=== PATIENT | male | born 1980 | race Caucasian/White ===

== ENCOUNTER 2023-04-12 15:27 | Inpatient (IN) ==
[2023-04-12] MEDS ORDERED: IOPAMIDOL 100 ML BOTTLE IV ONE (15:28)
[2023-04-12] MEDS ORDERED: ONDANSETRON 4 MG/2 ML VIAL IV PRN ×2 (15:42→23:14)
[2023-04-12] MEDS ORDERED: 0.9 % SODIUM CHLORIDE 1,000 ML IV ONE (15:42)
[2023-04-12] MEDS: HYDROmorphone 1 MG/ML SYRINGE IV PRN ×2 (16:03→17:11)
[2023-04-12 16:06] LABS: POC Calcium, Ionized 1.12 (1.16-1.32); POC Creatinine 1.1 (0.6-1.2)
[2023-04-12 16:53] LABS: Basophils # (Auto) 0.04 K/mcL (0.00-0.30); Basophils % (Auto) 0.3 % (0.0-2.0); Eosinophils % (Auto) 0.8 % (0.0-7.0); Lymphocytes # (Auto) 0.97 K/mcL (1.50-4.80); Lymphocytes % (Auto) 7.5 % (15.5-49.0); Mean Corpuscular HGB Conc 34.1 g/dL (31.0-36.0); Monocytes # (Auto) 1.04 K/mcL (0.10-0.90); Neutrophils % (Auto) 83.1 % (38.0-78.0); Platelet Count 333 K/mcL (140-440); RBC 4.89 M/mcL (4.63-6.08); Red Cell Distribution Width 12.8 % (11.5-14.5); WBC 12.9 K/mcL (4.5-11.0)
[2023-04-12 17:09] LABS: ALT/SGPT 20 U/L (<40); AST/SGOT 34 U/L (<40); Albumin 4.4 gm/dL (3.2-5.2); Alkaline Phosphatase 67 U/L (39-117); Bilirubin,Direct < 0.2 mg/dL (0-0.3); Bilirubin,Total 0.3 mg/dL (0.1-1.0); Globulin 3.7 gm/dL (2.2-3.7)
[2023-04-12] MEDS ORDERED: PIPERACILLIN SODIUM/TAZOBACTAM 3.375 GM in DEXTROSE 5% IN WATER 50 ML IV ONE (18:20)
[2023-04-12] MEDS ORDERED: HYDROmorphone 1 MG/ML SYRINGE IV ONE (18:32)
[2023-04-12] MEDS ORDERED: 0.9 % SODIUM CHLORIDE 250 ML IV SCH (19:00)
[2023-04-12] MEDS ORDERED: PROPOFOL 200 MG/20 ML VIAL IV ONE (19:33)
[2023-04-12] MEDS ORDERED: LIDOCAINE 2% PF 5 ML VIAL ONE (19:34)
[2023-04-12] MEDS ORDERED: fentaNYL 100 MCG/2 ML VIAL IV ONE ×2 (19:34→23:41)
[2023-04-12] MEDS ORDERED: ROCURONIUM 10 MG/ML ML IV ONE ×2 (19:34→21:32)
[2023-04-12] MEDS ORDERED: ONDANSETRON 4 MG/2 ML VIAL ONE (21:33)
[2023-04-12] MEDS ORDERED: HYDROmorphone 1 MG/ML SYRINGE ONE (22:50)
[2023-04-12] MEDS ORDERED: DEXMEDETOMIDINE HCL 200 MCG/2 ML VIAL ONE (22:53)
[2023-04-12] MEDS ORDERED: 0.9 % SODIUM CHLORIDE 100 ML IV ONE (22:54)
[2023-04-12] MEDS ORDERED: NALOXONE HCL 0.4 MG/ML VIAL IV PRN (23:14)
[2023-04-12] MEDS ORDERED: MEPERIDINE 50 MG/ML VIAL IM PRN (23:14)
[2023-04-12] MEDS ORDERED: IPRATROPIUM/ALBUTEROL 3 ML AMPUL.NEB NEB PRN (23:14)
[2023-04-12] MEDS ORDERED: fentaNYL 100 MCG/2 ML VIAL IV PRN (23:14)
[2023-04-12] MEDS ORDERED: ACETAMINOPHEN 1,000 MG/100 ML BAG IV ONE (23:14)
[2023-04-12] MEDS ORDERED: PROMETHAZINE 25 MG/ML VIAL IM PRN (23:14)
[2023-04-12] MEDS ORDERED: HYDROmorphone 0.5 MG/0.5 ML SYRINGE IV PRN (23:14)
[2023-04-12] MEDS ORDERED: METHOCARBAMOL 1,000 MG/10 ML VIAL IV PRN (23:14)
[2023-04-12] MEDS ORDERED: BACITRACIN TOPICAL OINT 15 GM TUBE TOPICAL ONE (23:37)
[2023-04-12] MEDS ORDERED: GUM MASTIC/STORAX/MSAL/ALCOHOL 1 DOSE DROPERETTE TOPICAL ONE (23:48)
[2023-04-13] MEDS ORDERED: PROPOFOL 200 MG/20 ML VIAL IV ONE
[2023-04-13] MEDS ORDERED: ACETAMINOPHEN 1,000 MG/100 ML BAG IV ONE (00:15)
[2023-04-13] MEDS ORDERED: PROMETHAZINE 25 MG/ML VIAL ONE (00:17)
[2023-04-13] MEDS ORDERED: MEPERIDINE 50 MG/ML VIAL ONE (00:17)
[2023-04-13] MEDS ORDERED: KETAMINE 50 MG/ML ML IV ONE (00:19)
[2023-04-13] MEDS ORDERED: KETAMINE 50 MG/ML ML ONE (00:31)
[2023-04-13] MEDS ORDERED: LORazepam 2 MG/ML VIAL ONE ×3 (02:03→05:55)
[2023-04-13] MEDS ORDERED: HYDROmorphone 1 MG/ML SYRINGE ONE ×4 (02:03→05:55)
[2023-04-13] MEDS: HYDROmorphone 0.5 MG/0.5 ML SYRINGE IV PRN ×13 (02:07→23:39)
[2023-04-13] MEDS: LORazepam 2 MG/ML VIAL IV PRN ×6 (02:07→14:10)
[2023-04-13] MEDS: DEXTROSE 5%-LR 1,000 ML IV SCH ×5 (02:08→23:46)
[2023-04-13] MEDS: PIPERACILLIN SODIUM/TAZOBACTAM 3.375 GM in DEXTROSE 5% IN WATER 50 ML IV SCH ×4 (02:58→19:58)
[2023-04-13 07:31] LABS: Hematocrit 44.3 % (40.1-51.0); Hemoglobin 14.4 g/dL (13.7-17.5); Mean Cell Volume 93.9 fL (80.0-100.0); Mean Corpuscular HGB Conc 32.5 g/dL (31.0-36.0); Platelet Count 319 K/mcL (140-440); RBC 4.72 M/mcL (4.63-6.08); Red Cell Distribution Width 12.9 % (11.5-14.5); WBC 13.6 K/mcL (4.5-11.0)
[2023-04-13 07:55] LABS: Blood Urea Nitrogen 15 mg/dL (6-20); Calcium 8.1 mg/dL (8.6-10.4); Carbon Dioxide 19 mmol/L (22-30); Chloride 102 mmol/L (96-108); Glomerular Filtration Rate 103; Glucose 101 mg/dL (70-105)
[2023-04-13] MEDS ORDERED: HALOPERIDOL LACTATE 5 MG/ML VIAL IM ONE (17:26)
[2023-04-13 18:53] LABS: Alcohol, Blood < 10.0 mg/dL; Alcohol,Blood < 0.010 gm/dL (<0.010)
[2023-04-13] MEDS ORDERED: DEXMEDETOMIDINE 100 ML IV ONE (22:29)
[2023-04-13] MEDS ORDERED: HALOPERIDOL LACTATE 5 MG/ML VIAL IM PRN (22:32)
[2023-04-13] MEDS: DEXMEDETOMIDINE 400 MCG in PREMIX 1 BAG IV SCH (23:15)
[2023-04-14] MEDS: HALOPERIDOL LACTATE 5 MG/ML VIAL IV PRN ×3 (00:05→08:36)
[2023-04-14] MEDS: PIPERACILLIN SODIUM/TAZOBACTAM 3.375 GM in DEXTROSE 5% IN WATER 50 ML IV SCH ×4 (00:13→18:04)
[2023-04-14] MEDS ORDERED: DEXMEDETOMIDINE 100 ML IV ONE ×2 (02:05→05:02)
[2023-04-14] MEDS: DEXMEDETOMIDINE 400 MCG in PREMIX 1 BAG IV SCH ×3 (02:12→18:05)
[2023-04-14 05:37] LABS: Hematocrit 36.2 % (40.1-51.0); Hemoglobin 12.2 g/dL (13.7-17.5); Mean Cell Volume 92.6 fL (80.0-100.0); Mean Corpuscular HGB Conc 33.7 g/dL (31.0-36.0); Mean Platelet Volume 9.1 fL (8.8-12.5); Platelet Count 268 K/mcL (140-440); RBC 3.91 M/mcL (4.63-6.08); Red Cell Distribution Width 12.6 % (11.5-14.5); WBC 7.1 K/mcL (4.5-11.0)
[2023-04-14 06:05] LABS: Amphetamine Screen,Urine None detected; Barbiturate Screen,Urine None detected; Benzodiazepines Screen,Urine None detected; Cannabinoid Screen,Urine Suspect Positive; Cocaine Screen,Urine None detected; Opiate Screen,Urine None detected; Oxycodone, Urine Screen None detected; Phencyclidine Screen,Urine None detected
[2023-04-14 06:09] LABS: Blood Urea Nitrogen 9 mg/dL (6-20); Carbon Dioxide 24 mmol/L (22-30); Chloride 102 mmol/L (96-108); Glomerular Filtration Rate 108; Glucose 139 mg/dL (70-105)
[2023-04-14] MEDS: HYDROmorphone 0.5 MG/0.5 ML SYRINGE IV PRN ×7 (08:42→22:06)
[2023-04-14] MEDS: DEXTROSE 5%-LR 1,000 ML IV SCH ×2 (08:46→17:15)
[2023-04-14] MEDS: PANTOPRAZOLE 40 MG VIAL IV SCH (09:41)
[2023-04-14] MEDS: NICOTINE 21 MG PATCH TOPICAL SCH (11:23)
[2023-04-14] MEDS: NICOTINE 14 MG PATCH TOPICAL SCH (11:23)
[2023-04-14] MEDS: POTASSIUM CHLORIDE 20 MEQ TABLET PO SCH (17:15)
[2023-04-14] MEDS: LORazepam 2 MG/ML VIAL IV PRN ×2 (18:36→22:53)
[2023-04-14] MEDS ORDERED: KETOROLAC 15 MG/ML VIAL ONE (20:49)
[2023-04-14] MEDS: 0.9 % SODIUM CHLORIDE 10 ML SYRINGE IV SCH (20:52)
[2023-04-14] MEDS: KETOROLAC 15 MG/ML VIAL IV SCH (20:52)
[2023-04-14] MEDS ORDERED: KETOROLAC 15 MG/ML VIAL IV SCH (22:00)
[2023-04-14] MEDS ORDERED: KETOROLAC 30 MG/ML VIAL IV SCH (22:00)
[2023-04-15] MEDS: PIPERACILLIN SODIUM/TAZOBACTAM 3.375 GM in DEXTROSE 5% IN WATER 50 ML IV SCH ×4 (00:30→17:56)
[2023-04-15] MEDS: HYDROmorphone 0.5 MG/0.5 ML SYRINGE IV PRN ×2 (01:43→05:15)
[2023-04-15] MEDS: DEXTROSE 5%-LR 1,000 ML IV SCH ×3 (01:45→18:04)
[2023-04-15] MEDS: HALOPERIDOL LACTATE 5 MG/ML VIAL IV PRN (01:48)
[2023-04-15] MEDS: LORazepam 2 MG/ML VIAL IV PRN ×2 (05:15→20:24)
[2023-04-15] MEDS ORDERED: KETOROLAC 15 MG/ML VIAL ONE (05:16)
[2023-04-15] MEDS: 0.9 % SODIUM CHLORIDE 10 ML SYRINGE IV SCH ×3 (05:16→22:41)
[2023-04-15] MEDS: KETOROLAC 15 MG/ML VIAL IV SCH ×3 (05:17→21:40)
[2023-04-15 06:25] LABS: Hematocrit 40.2 % (40.1-51.0); Hemoglobin 12.9 g/dL (13.7-17.5); Mean Cell Volume 93.7 fL (80.0-100.0); Mean Corpuscular HGB Conc 32.1 g/dL (31.0-36.0); Mean Platelet Volume 8.7 fL (8.8-12.5); Platelet Count 260 K/mcL (140-440); RBC 4.29 M/mcL (4.63-6.08); Red Cell Distribution Width 12.6 % (11.5-14.5); WBC 5.6 K/mcL (4.5-11.0)
[2023-04-15 07:16] LABS: Blood Urea Nitrogen 4 mg/dL (6-20); Calcium 8.4 mg/dL (8.6-10.4); Carbon Dioxide 24 mmol/L (22-30); Chloride 105 mmol/L (96-108); Glomerular Filtration Rate 108; Glucose 104 mg/dL (70-105)
[2023-04-15] MEDS: POTASSIUM CHLORIDE 20 MEQ TABLET PO SCH (07:24)
[2023-04-15] MEDS: PANTOPRAZOLE 40 MG VIAL IV SCH (07:24)
[2023-04-15] MEDS: HYDROmorphone 1 MG/ML SYRINGE IV PRN ×8 (07:24→22:40)
[2023-04-15] MEDS: NICOTINE 21 MG PATCH TOPICAL SCH (09:45)
[2023-04-15] MEDS: NICOTINE 14 MG PATCH TOPICAL SCH (09:46)
[2023-04-15] MEDS: oxyCODONE IR 5 MG TABLET PO PRN ×3 (11:24→23:27)
[2023-04-16] MEDS: PIPERACILLIN SODIUM/TAZOBACTAM 3.375 GM in DEXTROSE 5% IN WATER 50 ML IV SCH ×5 (00:25→23:23)
[2023-04-16] MEDS: DEXTROSE 5%-LR 1,000 ML IV SCH ×6 (02:33→23:25)
[2023-04-16] MEDS: HYDROmorphone 1 MG/ML SYRINGE IV PRN ×7 (03:40→22:00)
[2023-04-16] MEDS: oxyCODONE IR 5 MG TABLET PO PRN ×5 (05:30→22:38)
[2023-04-16] MEDS: KETOROLAC 15 MG/ML VIAL IV SCH ×3 (05:33→22:39)
[2023-04-16] MEDS: 0.9 % SODIUM CHLORIDE 10 ML SYRINGE IV SCH ×3 (05:35→21:29)
[2023-04-16] MEDS: PANTOPRAZOLE 40 MG VIAL IV SCH (07:59)
[2023-04-16] MEDS: LACTULOSE 20 GM/30 ML ORAL.SOL PO SCH (09:58)
[2023-04-16] MEDS: NICOTINE 21 MG PATCH TOPICAL SCH (10:01)
[2023-04-16] MEDS: NICOTINE 14 MG PATCH TOPICAL SCH (10:01)
[2023-04-17] MEDS: HYDROmorphone 1 MG/ML SYRINGE IV PRN ×12 (00:29→22:18)
[2023-04-17] MEDS: oxyCODONE IR 5 MG TABLET PO PRN ×6 (02:30→23:42)
[2023-04-17] MEDS: 0.9 % SODIUM CHLORIDE 10 ML SYRINGE IV SCH ×3 (04:04→22:23)
[2023-04-17] MEDS: DEXTROSE 5%-LR 1,000 ML IV SCH ×3 (04:04→13:47)
[2023-04-17] MEDS: LORazepam 2 MG/ML VIAL IV PRN ×3 (04:33→15:14)
[2023-04-17] MEDS: PIPERACILLIN SODIUM/TAZOBACTAM 3.375 GM in DEXTROSE 5% IN WATER 50 ML IV SCH ×4 (05:55→23:59)
[2023-04-17] MEDS: KETOROLAC 15 MG/ML VIAL IV SCH ×2 (06:27→13:42)
[2023-04-17 07:24] LABS: Hematocrit 41.5 % (40.1-51.0); Hemoglobin 13.5 g/dL (13.7-17.5); Mean Cell Volume 92.4 fL (80.0-100.0); Mean Corpuscular HGB Conc 32.5 g/dL (31.0-36.0); Mean Platelet Volume 8.7 fL (8.8-12.5); Platelet Count 385 K/mcL (140-440); RBC 4.49 M/mcL (4.63-6.08); Red Cell Distribution Width 12.4 % (11.5-14.5); WBC 5.4 K/mcL (4.5-11.0)
[2023-04-17] MEDS: PANTOPRAZOLE 40 MG VIAL IV SCH (07:27)
[2023-04-17 07:48] LABS: Blood Urea Nitrogen 2 mg/dL (6-20); Carbon Dioxide 28 mmol/L (22-30); Chloride 100 mmol/L (96-108); Glomerular Filtration Rate 103; Glucose 94 mg/dL (70-105)
[2023-04-17] MEDS: NICOTINE 14 MG PATCH TOPICAL SCH (09:14)
[2023-04-17] MEDS: NICOTINE 21 MG PATCH TOPICAL SCH (09:14)
[2023-04-17] MEDS: LACTULOSE 20 GM/30 ML ORAL.SOL PO SCH (09:14)
[2023-04-17] MEDS: ACETAMINOPHEN 1,000 MG/100 ML BAG IV SCH ×2 (14:05→22:20)
[2023-04-17] MEDS: ONDANSETRON 4 MG/2 ML VIAL IV PRN ×2 (20:04→23:43)
[2023-04-18] MEDS: DEXTROSE 5%-LR 1,000 ML IV SCH ×3 (00:04→19:51)
[2023-04-18] MEDS: HYDROmorphone 1 MG/ML SYRINGE IV PRN ×11 (00:05→23:04)
[2023-04-18] MEDS: oxyCODONE IR 5 MG TABLET PO PRN ×4 (03:59→20:17)
[2023-04-18] MEDS: ONDANSETRON 4 MG/2 ML VIAL IV PRN ×2 (04:00→11:05)
[2023-04-18] MEDS: ACETAMINOPHEN 1,000 MG/100 ML BAG IV SCH ×3 (05:11→23:06)
[2023-04-18] MEDS: PIPERACILLIN SODIUM/TAZOBACTAM 3.375 GM in DEXTROSE 5% IN WATER 50 ML IV SCH ×3 (05:46→17:45)
[2023-04-18] MEDS: 0.9 % SODIUM CHLORIDE 10 ML SYRINGE IV SCH ×3 (05:59→23:06)
[2023-04-18 06:57] LABS: Hematocrit 40.8 % (40.1-51.0); Hemoglobin 13.6 g/dL (13.7-17.5); Mean Cell Volume 91.3 fL (80.0-100.0); Mean Corpuscular HGB Conc 33.3 g/dL (31.0-36.0); Mean Platelet Volume 8.4 fL (8.8-12.5); Platelet Count 394 K/mcL (140-440); RBC 4.47 M/mcL (4.63-6.08); Red Cell Distribution Width 12.2 % (11.5-14.5); WBC 6.2 K/mcL (4.5-11.0)
[2023-04-18] MEDS: PANTOPRAZOLE 40 MG VIAL IV SCH (07:26)
[2023-04-18 07:32] LABS: Blood Urea Nitrogen 3 mg/dL (6-20); Calcium 9.3 mg/dL (8.6-10.4); Carbon Dioxide 29 mmol/L (22-30); Chloride 96 mmol/L (96-108); Glomerular Filtration Rate 91; Glucose 100 mg/dL (70-105)
[2023-04-18] MEDS: NICOTINE 14 MG PATCH TOPICAL SCH (09:11)
[2023-04-18] MEDS: LACTULOSE 20 GM/30 ML ORAL.SOL PO SCH (09:11)
[2023-04-18] MEDS: NICOTINE 21 MG PATCH TOPICAL SCH (09:11)
[2023-04-18] MEDS ORDERED: IOPAMIDOL 100 ML BOTTLE IV ONE (11:34)
[2023-04-18] MEDS: SULFAMETHOXAZOLE/TRIMETHOPRIM 1 TABLET PO SCH (23:03)
[2023-04-19] MEDS: oxyCODONE IR 5 MG TABLET PO PRN ×5 (00:29→20:46)
[2023-04-19] MEDS: PIPERACILLIN SODIUM/TAZOBACTAM 3.375 GM in DEXTROSE 5% IN WATER 50 ML IV SCH ×5 (00:33→23:30)
[2023-04-19] MEDS: 0.9 % SODIUM CHLORIDE 10 ML SYRINGE IV SCH ×4 (00:33→20:24)
[2023-04-19] MEDS: HYDROmorphone 1 MG/ML SYRINGE IV PRN ×7 (04:54→23:33)
[2023-04-19] MEDS: ACETAMINOPHEN 1,000 MG/100 ML BAG IV SCH ×2 (05:42→14:35)
[2023-04-19 06:29] LABS: Hematocrit 43.8 % (40.1-51.0); Hemoglobin 14.4 g/dL (13.7-17.5); Mean Cell Volume 91.6 fL (80.0-100.0); Mean Corpuscular HGB Conc 32.9 g/dL (31.0-36.0); Mean Platelet Volume 8.5 fL (8.8-12.5); Platelet Count 442 K/mcL (140-440); RBC 4.78 M/mcL (4.63-6.08); Red Cell Distribution Width 12.2 % (11.5-14.5); WBC 5.2 K/mcL (4.5-11.0)
[2023-04-19] MEDS: PANTOPRAZOLE 40 MG VIAL IV SCH (06:58)
[2023-04-19] MEDS: DEXTROSE 5%-LR 1,000 ML IV SCH ×2 (06:58→19:06)
[2023-04-19 07:01] LABS: Blood Urea Nitrogen 5 mg/dL (6-20); Calcium 9.2 mg/dL (8.6-10.4); Carbon Dioxide 28 mmol/L (22-30); Chloride 99 mmol/L (96-108); Glomerular Filtration Rate 91; Glucose 84 mg/dL (70-105)
[2023-04-19] MEDS: LACTULOSE 20 GM/30 ML ORAL.SOL PO SCH (10:41)
[2023-04-19] MEDS: SULFAMETHOXAZOLE/TRIMETHOPRIM 1 TABLET PO SCH ×2 (10:41→20:46)
[2023-04-19] MEDS: NICOTINE 21 MG PATCH TOPICAL SCH (10:49)
[2023-04-19] MEDS: NICOTINE 14 MG PATCH TOPICAL SCH (10:49)
[2023-04-20] MEDS: oxyCODONE IR 5 MG TABLET PO PRN ×6 (01:26→22:32)
[2023-04-20] MEDS: HYDROmorphone 1 MG/ML SYRINGE IV PRN ×7 (03:56→21:50)
[2023-04-20] MEDS: 0.9 % SODIUM CHLORIDE 10 ML SYRINGE IV SCH ×3 (04:16→21:36)
[2023-04-20] MEDS: PIPERACILLIN SODIUM/TAZOBACTAM 3.375 GM in DEXTROSE 5% IN WATER 50 ML IV SCH ×4 (06:03→23:42)
[2023-04-20] MEDS: DEXTROSE 5%-LR 1,000 ML IV SCH ×4 (06:07→22:58)
[2023-04-20] MEDS: PANTOPRAZOLE 40 MG VIAL IV SCH (08:23)
[2023-04-20] MEDS: SULFAMETHOXAZOLE/TRIMETHOPRIM 1 TABLET PO SCH ×2 (10:12→20:40)
[2023-04-20] MEDS: LACTULOSE 20 GM/30 ML ORAL.SOL PO SCH (10:13)
[2023-04-20] MEDS: NICOTINE 21 MG PATCH TOPICAL SCH (13:51)
[2023-04-20] MEDS: NICOTINE 14 MG PATCH TOPICAL SCH (13:51)
[2023-04-20] MEDS: LORazepam 2 MG/ML VIAL IV PRN ×2 (16:12→22:32)
[2023-04-21] MEDS: HYDROmorphone 1 MG/ML SYRINGE IV PRN ×15 (00:20→23:54)
[2023-04-21] MEDS: oxyCODONE IR 5 MG TABLET PO PRN ×5 (02:40→20:30)
[2023-04-21] MEDS: ONDANSETRON 4 MG/2 ML VIAL IV PRN ×2 (02:44→20:38)
[2023-04-21] MEDS: 0.9 % SODIUM CHLORIDE 10 ML SYRINGE IV SCH ×4 (05:18→20:10)
[2023-04-21] MEDS: PIPERACILLIN SODIUM/TAZOBACTAM 3.375 GM in DEXTROSE 5% IN WATER 50 ML IV SCH ×4 (06:01→23:54)
[2023-04-21] MEDS: PANTOPRAZOLE 40 MG VIAL IV SCH (07:06)
[2023-04-21 07:27] LABS: Hematocrit 43.4 % (40.1-51.0); Hemoglobin 13.8 g/dL (13.7-17.5); Mean Cell Volume 93.3 fL (80.0-100.0); Mean Corpuscular HGB Conc 31.8 g/dL (31.0-36.0); Mean Platelet Volume 8.5 fL (8.8-12.5); Platelet Count 466 K/mcL (140-440); RBC 4.65 M/mcL (4.63-6.08); Red Cell Distribution Width 12.2 % (11.5-14.5); WBC 6.5 K/mcL (4.5-11.0)
[2023-04-21 08:36] LABS: Blood Urea Nitrogen 7 mg/dL (6-20); Calcium 9.4 mg/dL (8.6-10.4); Carbon Dioxide 27 mmol/L (22-30); Chloride 101 mmol/L (96-108); Glomerular Filtration Rate 91; Glucose 88 mg/dL (70-105)
[2023-04-21] MEDS: LACTULOSE 20 GM/30 ML ORAL.SOL PO SCH (09:21)
[2023-04-21] MEDS: NICOTINE 14 MG PATCH TOPICAL SCH (09:21)
[2023-04-21] MEDS: SULFAMETHOXAZOLE/TRIMETHOPRIM 1 TABLET PO SCH ×2 (09:21→20:31)
[2023-04-21] MEDS: NICOTINE 21 MG PATCH TOPICAL SCH (09:21)
[2023-04-21] MEDS: DEXTROSE 5%-LR 1,000 ML IV SCH (16:00)
[2023-04-22] MEDS: oxyCODONE IR 5 MG TABLET PO PRN ×6 (00:35→20:33)
[2023-04-22] MEDS: HYDROmorphone 1 MG/ML SYRINGE IV PRN ×12 (01:30→23:22)
[2023-04-22] MEDS: 0.9 % SODIUM CHLORIDE 10 ML SYRINGE IV SCH ×3 (05:03→21:13)
[2023-04-22] MEDS: DEXTROSE 5%-LR 1,000 ML IV SCH ×2 (05:03→20:33)
[2023-04-22] MEDS: PIPERACILLIN SODIUM/TAZOBACTAM 3.375 GM in DEXTROSE 5% IN WATER 50 ML IV SCH ×4 (05:03→23:22)
[2023-04-22] MEDS: PANTOPRAZOLE 40 MG VIAL IV SCH (07:19)
[2023-04-22] MEDS: LACTULOSE 20 GM/30 ML ORAL.SOL PO SCH (08:27)
[2023-04-22] MEDS: SULFAMETHOXAZOLE/TRIMETHOPRIM 1 TABLET PO SCH ×2 (08:27→20:33)
[2023-04-22] MEDS: NICOTINE 21 MG PATCH TOPICAL SCH (09:07)
[2023-04-22] MEDS: NICOTINE 14 MG PATCH TOPICAL SCH (09:07)
[2023-04-22] MEDS: LORazepam 2 MG/ML VIAL IV PRN (23:22)
[2023-04-23] MEDS: oxyCODONE IR 5 MG TABLET PO PRN ×6 (00:45→21:23)
[2023-04-23] MEDS: HYDROmorphone 1 MG/ML SYRINGE IV PRN ×8 (01:10→23:41)
[2023-04-23] MEDS: PIPERACILLIN SODIUM/TAZOBACTAM 3.375 GM in DEXTROSE 5% IN WATER 50 ML IV SCH ×4 (05:53→23:41)
[2023-04-23] MEDS: 0.9 % SODIUM CHLORIDE 10 ML SYRINGE IV SCH ×3 (06:28→21:23)
[2023-04-23] MEDS: DEXTROSE 5%-LR 1,000 ML IV SCH ×2 (06:46→15:49)
[2023-04-23] MEDS: PANTOPRAZOLE 40 MG VIAL IV SCH (07:15)
[2023-04-23] MEDS: LACTULOSE 20 GM/30 ML ORAL.SOL PO SCH (09:12)
[2023-04-23] MEDS: NICOTINE 21 MG PATCH TOPICAL SCH (09:12)
[2023-04-23] MEDS: NICOTINE 14 MG PATCH TOPICAL SCH (09:12)
[2023-04-23] MEDS: SULFAMETHOXAZOLE/TRIMETHOPRIM 1 TABLET PO SCH ×2 (09:12→21:23)
[2023-04-23] MEDS: LORazepam 2 MG/ML VIAL IV PRN (21:31)
[2023-04-24] MEDS: oxyCODONE IR 5 MG TABLET PO PRN ×4 (01:34→22:14)
[2023-04-24] MEDS: DEXTROSE 5%-LR 1,000 ML IV SCH ×3 (02:20→14:48)
[2023-04-24] MEDS: HYDROmorphone 1 MG/ML SYRINGE IV PRN ×6 (03:29→23:43)
[2023-04-24] MEDS: 0.9 % SODIUM CHLORIDE 10 ML SYRINGE IV SCH ×3 (04:04→20:28)
[2023-04-24] MEDS: PIPERACILLIN SODIUM/TAZOBACTAM 3.375 GM in DEXTROSE 5% IN WATER 50 ML IV SCH ×4 (05:37→23:10)
[2023-04-24] MEDS: PANTOPRAZOLE 40 MG VIAL IV SCH (07:45)
[2023-04-24] MEDS: LACTULOSE 20 GM/30 ML ORAL.SOL PO SCH (08:59)
[2023-04-24] MEDS: NICOTINE 21 MG PATCH TOPICAL SCH (08:59)
[2023-04-24] MEDS: NICOTINE 14 MG PATCH TOPICAL SCH (08:59)
[2023-04-24] MEDS: SULFAMETHOXAZOLE/TRIMETHOPRIM 1 TABLET PO SCH ×2 (08:59→20:44)
[2023-04-24] MEDS: LORazepam 2 MG/ML VIAL IV PRN ×2 (14:48→20:44)
[2023-04-25] MEDS: oxyCODONE IR 5 MG TABLET PO PRN ×6 (02:01→22:26)
[2023-04-25] MEDS: LORazepam 2 MG/ML VIAL IV PRN ×3 (03:07→22:26)
[2023-04-25] MEDS: HYDROmorphone 1 MG/ML SYRINGE IV PRN ×5 (04:05→20:26)
[2023-04-25] MEDS: 0.9 % SODIUM CHLORIDE 10 ML SYRINGE IV SCH ×3 (04:14→20:27)
[2023-04-25] MEDS: DEXTROSE 5%-LR 1,000 ML IV SCH ×4 (04:14→22:37)
[2023-04-25] MEDS: PIPERACILLIN SODIUM/TAZOBACTAM 3.375 GM in DEXTROSE 5% IN WATER 50 ML IV SCH ×3 (05:01→18:03)
[2023-04-25] MEDS: PANTOPRAZOLE 40 MG VIAL IV SCH (07:50)
[2023-04-25] MEDS: LACTULOSE 20 GM/30 ML ORAL.SOL PO SCH (08:32)
[2023-04-25] MEDS: SULFAMETHOXAZOLE/TRIMETHOPRIM 1 TABLET PO SCH ×2 (08:32→20:27)
[2023-04-25] MEDS: NICOTINE 21 MG PATCH TOPICAL SCH (10:07)
[2023-04-25] MEDS: NICOTINE 14 MG PATCH TOPICAL SCH (10:07)
[2023-04-26] MEDS: PIPERACILLIN SODIUM/TAZOBACTAM 3.375 GM in DEXTROSE 5% IN WATER 50 ML IV SCH ×3 (00:43→12:13)
[2023-04-26] MEDS: HYDROmorphone 1 MG/ML SYRINGE IV PRN ×4 (00:43→14:22)
[2023-04-26] MEDS: oxyCODONE IR 5 MG TABLET PO PRN ×4 (03:04→20:15)
[2023-04-26] MEDS: LORazepam 2 MG/ML VIAL IV PRN ×3 (03:42→22:55)
[2023-04-26] MEDS: 0.9 % SODIUM CHLORIDE 10 ML SYRINGE IV SCH ×4 (03:44→20:53)
[2023-04-26] MEDS: PANTOPRAZOLE 40 MG VIAL IV SCH (07:43)
[2023-04-26] MEDS: LACTULOSE 20 GM/30 ML ORAL.SOL PO SCH (09:50)
[2023-04-26] MEDS: SULFAMETHOXAZOLE/TRIMETHOPRIM 1 TABLET PO SCH ×2 (09:51→20:15)
[2023-04-26] MEDS: NICOTINE 14 MG PATCH TOPICAL SCH (12:14)
[2023-04-26] MEDS: NICOTINE 21 MG PATCH TOPICAL SCH (12:14)
[2023-04-26] MEDS: DEXTROSE 5%-LR 1,000 ML IV SCH (12:18)
[2023-04-27] MEDS: oxyCODONE IR 5 MG TABLET PO PRN ×5 (00:08→20:11)
[2023-04-27] MEDS: LORazepam 2 MG/ML VIAL IV PRN ×5 (03:08→22:51)
[2023-04-27] MEDS: 0.9 % SODIUM CHLORIDE 10 ML SYRINGE IV SCH ×3 (06:04→22:51)
[2023-04-27] MEDS: PANTOPRAZOLE 40 MG VIAL IV SCH (07:35)
[2023-04-27] MEDS: SULFAMETHOXAZOLE/TRIMETHOPRIM 1 TABLET PO SCH ×2 (09:41→20:11)
[2023-04-27] MEDS: LACTULOSE 20 GM/30 ML ORAL.SOL PO SCH (09:43)
[2023-04-27] MEDS: NICOTINE 21 MG PATCH TOPICAL SCH (09:43)
[2023-04-27] MEDS: NICOTINE 14 MG PATCH TOPICAL SCH (09:44)
[2023-04-27] MEDS: HYDROmorphone 1 MG/ML SYRINGE IV PRN (11:37)
[2023-04-28] MEDS: oxyCODONE IR 5 MG TABLET PO PRN ×6 (00:13→19:59)
[2023-04-28] MEDS: 0.9 % SODIUM CHLORIDE 10 ML SYRINGE IV SCH ×3 (05:11→21:06)
[2023-04-28] MEDS: LACTULOSE 20 GM/30 ML ORAL.SOL PO SCH (08:16)
[2023-04-28] MEDS: PANTOPRAZOLE 40 MG VIAL IV SCH (08:16)
[2023-04-28] MEDS: SULFAMETHOXAZOLE/TRIMETHOPRIM 1 TABLET PO SCH ×2 (08:17→21:05)
[2023-04-28] MEDS: NICOTINE 21 MG PATCH TOPICAL SCH (10:32)
[2023-04-28] MEDS: NICOTINE 14 MG PATCH TOPICAL SCH (10:32)
[2023-04-28] MEDS: LORazepam 2 MG/ML VIAL IV PRN ×4 (10:43→22:03)
[2023-04-29] MEDS: oxyCODONE IR 5 MG TABLET PO PRN ×6 (00:17→20:09)
[2023-04-29] MEDS: LORazepam 2 MG/ML VIAL IV PRN ×6 (02:14→22:18)
[2023-04-29] MEDS: 0.9 % SODIUM CHLORIDE 10 ML SYRINGE IV SCH ×3 (06:10→20:10)
[2023-04-29] MEDS: PANTOPRAZOLE 40 MG VIAL IV SCH (07:35)
[2023-04-29] MEDS: LACTULOSE 20 GM/30 ML ORAL.SOL PO SCH (08:20)
[2023-04-29] MEDS: SULFAMETHOXAZOLE/TRIMETHOPRIM 1 TABLET PO SCH ×2 (08:20→20:09)
[2023-04-29] MEDS: NICOTINE 21 MG PATCH TOPICAL SCH (09:59)
[2023-04-29] MEDS: NICOTINE 14 MG PATCH TOPICAL SCH (09:59)
[2023-04-29] MEDS: HYDROmorphone 1 MG/ML SYRINGE IV PRN (14:38)
[2023-04-30] MEDS: oxyCODONE IR 5 MG TABLET PO PRN ×6 (00:05→22:47)
[2023-04-30] MEDS: LORazepam 2 MG/ML VIAL IV PRN ×5 (02:31→21:01)
[2023-04-30] MEDS: PANTOPRAZOLE 40 MG VIAL IV SCH (06:43)
[2023-04-30] MEDS: 0.9 % SODIUM CHLORIDE 10 ML SYRINGE IV SCH ×5 (06:44→21:02)
[2023-04-30 07:30] LABS: Hematocrit 43.2 % (40.1-51.0); Hemoglobin 14.2 g/dL (13.7-17.5); Mean Cell Volume 90.8 fL (80.0-100.0); Mean Corpuscular HGB Conc 32.9 g/dL (31.0-36.0); Mean Platelet Volume 8.6 fL (8.8-12.5); Platelet Count 633 K/mcL (140-440); RBC 4.76 M/mcL (4.63-6.08); Red Cell Distribution Width 12.1 % (11.5-14.5); WBC 5.8 K/mcL (4.5-11.0)
[2023-04-30 07:59] LABS: Blood Urea Nitrogen 13 mg/dL (6-20); Calcium 9.2 mg/dL (8.6-10.4); Carbon Dioxide 26 mmol/L (22-30); Chloride 96 mmol/L (96-108); Glomerular Filtration Rate 91; Glucose 87 mg/dL (70-105)
[2023-04-30] MEDS: SULFAMETHOXAZOLE/TRIMETHOPRIM 1 TABLET PO SCH ×2 (09:04→21:01)
[2023-04-30] MEDS: LACTULOSE 20 GM/30 ML ORAL.SOL PO SCH (09:04)
[2023-04-30] MEDS: NICOTINE 21 MG PATCH TOPICAL SCH (09:05)
[2023-04-30] MEDS: NICOTINE 14 MG PATCH TOPICAL SCH (09:05)
[2023-05-01] MEDS: LORazepam 2 MG/ML VIAL IV PRN ×4 (02:05→13:47)
[2023-05-01] MEDS: oxyCODONE IR 5 MG TABLET PO PRN ×5 (03:08→20:43)
[2023-05-01] MEDS: 0.9 % SODIUM CHLORIDE 10 ML SYRINGE IV SCH ×5 (05:17→21:27)
[2023-05-01] MEDS: PANTOPRAZOLE 40 MG VIAL IV SCH (07:16)
[2023-05-01] MEDS: SULFAMETHOXAZOLE/TRIMETHOPRIM 1 TABLET PO SCH ×2 (09:22→20:43)
[2023-05-01] MEDS: LACTULOSE 20 GM/30 ML ORAL.SOL PO SCH (09:22)
[2023-05-01] MEDS: NICOTINE 14 MG PATCH TOPICAL SCH (09:23)
[2023-05-01] MEDS: NICOTINE 21 MG PATCH TOPICAL SCH (09:23)
[2023-05-01] MEDS ORDERED: HALOPERIDOL 5 MG TABLET PO PRN (14:59)
[2023-05-01] MEDS: LORazepam 0.5 MG TABLET PO PRN ×2 (19:11→22:47)
[2023-05-02] MEDS: oxyCODONE IR 5 MG TABLET PO PRN ×5 (01:33→19:54)
[2023-05-02] MEDS: 0.9 % SODIUM CHLORIDE 10 ML SYRINGE IV SCH ×4 (05:19→22:10)
[2023-05-02] MEDS: SULFAMETHOXAZOLE/TRIMETHOPRIM 1 TABLET PO SCH ×2 (08:00→19:54)
[2023-05-02] MEDS: PANTOPRAZOLE 40 MG VIAL IV SCH (08:00)
[2023-05-02] MEDS: LACTULOSE 20 GM/30 ML ORAL.SOL PO SCH (08:01)
[2023-05-02] MEDS: LORazepam 0.5 MG TABLET PO PRN (08:01)
[2023-05-02] MEDS: NICOTINE 21 MG PATCH TOPICAL SCH (10:40)
[2023-05-02] MEDS: NICOTINE 14 MG PATCH TOPICAL SCH (10:40)
[2023-05-02] MEDS: HYDROmorphone 1 MG/ML SYRINGE IV PRN (12:05)
[2023-05-03] MEDS: oxyCODONE IR 5 MG TABLET PO PRN ×6 (00:15→20:15)
[2023-05-03] MEDS: 0.9 % SODIUM CHLORIDE 10 ML SYRINGE IV SCH ×4 (04:17→20:16)
[2023-05-03] MEDS: PANTOPRAZOLE 40 MG TABLET PO SCH (07:18)
[2023-05-03] MEDS: LACTULOSE 20 GM/30 ML ORAL.SOL PO SCH (08:48)
[2023-05-03] MEDS: SULFAMETHOXAZOLE/TRIMETHOPRIM 1 TABLET PO SCH ×2 (08:48→20:16)
[2023-05-03] MEDS: NICOTINE 14 MG PATCH TOPICAL SCH (09:40)
[2023-05-03] MEDS: NICOTINE 21 MG PATCH TOPICAL SCH (09:40)
[2023-05-04] MEDS: oxyCODONE IR 5 MG TABLET PO PRN ×5 (00:31→20:51)
[2023-05-04] MEDS: LORazepam 0.5 MG TABLET PO PRN (02:10)
[2023-05-04] MEDS: 0.9 % SODIUM CHLORIDE 10 ML SYRINGE IV SCH ×3 (04:33→20:51)
[2023-05-04] MEDS: LACTULOSE 20 GM/30 ML ORAL.SOL PO SCH ×3 (08:23→20:49)
[2023-05-04] MEDS: SULFAMETHOXAZOLE/TRIMETHOPRIM 1 TABLET PO SCH ×2 (08:23→20:49)
[2023-05-04] MEDS: PANTOPRAZOLE 40 MG TABLET PO SCH (08:24)
[2023-05-04] MEDS: NICOTINE 21 MG PATCH TOPICAL SCH (11:46)
[2023-05-04] MEDS: NICOTINE 14 MG PATCH TOPICAL SCH (11:46)
[2023-05-04] MEDS: HYDROmorphone 1 MG/ML SYRINGE IV PRN (12:02)
[2023-05-05] MEDS: oxyCODONE IR 5 MG TABLET PO PRN ×6 (01:10→21:29)
[2023-05-05] MEDS: 0.9 % SODIUM CHLORIDE 10 ML SYRINGE IV SCH ×3 (05:58→21:30)
[2023-05-05] MEDS: SULFAMETHOXAZOLE/TRIMETHOPRIM 1 TABLET PO SCH ×2 (08:25→21:30)
[2023-05-05] MEDS: PANTOPRAZOLE 40 MG TABLET PO SCH (08:26)
[2023-05-05] MEDS: NICOTINE 21 MG PATCH TOPICAL SCH (08:26)
[2023-05-05] MEDS: LACTULOSE 20 GM/30 ML ORAL.SOL PO SCH ×2 (08:26→21:40)
[2023-05-05] MEDS: NICOTINE 14 MG PATCH TOPICAL SCH (08:26)
[2023-05-06] MEDS: oxyCODONE IR 5 MG TABLET PO PRN ×5 (02:00→20:27)
[2023-05-06] MEDS: 0.9 % SODIUM CHLORIDE 10 ML SYRINGE IV SCH ×2 (05:50→14:45)
[2023-05-06] MEDS: PANTOPRAZOLE 40 MG TABLET PO SCH (10:30)
[2023-05-06] MEDS: SULFAMETHOXAZOLE/TRIMETHOPRIM 1 TABLET PO SCH ×2 (10:30→20:27)
[2023-05-06] MEDS: NICOTINE 14 MG PATCH TOPICAL SCH (10:31)
[2023-05-06] MEDS: NICOTINE 21 MG PATCH TOPICAL SCH (10:31)
[2023-05-06] MEDS: LACTULOSE 20 GM/30 ML ORAL.SOL PO SCH ×2 (10:35→20:25)
[2023-05-06] MEDS: HYDROmorphone 1 MG/ML SYRINGE IV PRN (14:14)
[2023-05-07] MEDS: 0.9 % SODIUM CHLORIDE 10 ML SYRINGE IV SCH ×5 (00:24→20:58)
[2023-05-07] MEDS: oxyCODONE IR 5 MG TABLET PO PRN ×5 (00:24→19:35)
[2023-05-07] MEDS: PANTOPRAZOLE 40 MG TABLET PO SCH (06:53)
[2023-05-07] MEDS: LACTULOSE 20 GM/30 ML ORAL.SOL PO SCH (09:30)
[2023-05-07] MEDS: SULFAMETHOXAZOLE/TRIMETHOPRIM 1 TABLET PO SCH ×2 (09:31→20:58)
[2023-05-07] MEDS: NICOTINE 21 MG PATCH TOPICAL SCH (09:58)
[2023-05-07] MEDS: NICOTINE 14 MG PATCH TOPICAL SCH (09:58)
[2023-05-07] MEDS ORDERED: LACTULOSE 20 GM/30 ML ORAL.SOL PO PRN (15:11)
[2023-05-08] MEDS: oxyCODONE IR 5 MG TABLET PO PRN (01:34)
[2023-05-08] MEDS: 0.9 % SODIUM CHLORIDE 10 ML SYRINGE IV SCH (04:03)
[2023-05-08] MEDS ORDERED: oxyCODONE IR 5 MG TABLET PO PRN (08:10)
== END 2023-05-08 08:25 | disposition left against medical advice (07) | DRG 329 ==
LOC: ED 15:27 → SUR 19:26 → MEDSUR 04-13 00:50 → ICU 04-13 23:00 → MEDSUR 04-16 14:27
PROVIDERS: ADMIT Surgery Surgical Critical Care; ATTEND Surgery Surgical Critical Care